=== PATIENT | female | born 1995 | race African-American/Black ===

== ENCOUNTER 2018-02-25 06:04 | Emergency (ER) | payer SELFPAY ==
[~2018-02-25] VITALS: Ht 170.2 cm; Wt 50.0 kg
[2018-02-25 06:35] VITALS: BP 140/95
[2018-02-25] MEDS ORDERED: HydrOXYzine HCL 25 MG TABLET PO ONE (08:45)
== END 2018-02-25 09:21 | disposition home or self-care (01) ==
LOC: EMS 06:05
DX: F41.9 Anxiety disorder, unspecified (principal)
CPT/HCPCS: 99284